=== PATIENT | female | born 1965 | race Caucasian/White ===

== ENCOUNTER 2022-02-24 07:10 | Day surgery (SDC) | payer MEDICARE, SELFPAY ==
[2022-02-24] VITALS (7 sets, daily range): BP systolic 126–150; BP diastolic 69–77; PULSE 65–93; RESP 16–20; TEMP 36.7–36.8; O2SAT 92–100; BMI 44.2
--- NOTE | 2022-02-24 08:48 | PM.ORPRC ---
Procedure Note Date of procedure: 02/24/22 Procedure: Preop diagnosis: Right upper extremity carpal tunnel syndrome Postop diagnosis: Right upper extremity carpal tunnel syndrome Procedure: Right upper extremity carpal tunnel release Anesthesia: Local Surgeon: Marques Salinas MD administrative personal assistant: TASIA Byrd EBL: 5 mL Complications: None Specimens: None Drains: None Indications: The patient has a history of right upper extremity carpal tunnel syndrome symptoms. Despite appropriate nonoperative management consisting of nighttime bracing and occupational therapy they continue to have symptoms. Operative intervention was recommended. The risks, benefits alternatives and expected outcomes were discussed in detail. These included but were not limited to: Infection, bleeding, injury to blood vessel or nerve, venous thromboembolism. All questions were answered to their satisfaction. The patient was placed supine on the operating room table. Local anesthesia was established with 0.5% Marcaine without epinephrine and 2% lidocaine without epinephrine. The hand was prepped and draped in usual sterile fashion. The limb was elevated the forearm pneumatic tourniquet was inflated to 250 mm of mercury. A longitudinal incision was made centered over the radial border of the ring finger at the base of the palm. Subcutaneous dissection was sharply taken through the palmar fascia and the palmaris brevis to the transverse carpal ligament. The ligament was divided in line with the incision. Proximal and distal dissection was carried with tenotomy and Metzenbaum scissors for a wide decompression of the carpal tunnel. The tourniquet was released , bleeding was controlled with direct pressure. The wound was closed with a 3-0 nylon. A bulky dry dressing was applied, sponge and needle counts were correct x 2. The patient tolerated the procedure well, there were no apparent complications. They were sent to same day surgery in satisfactory condition. Plan: Use of the hand as tolerates. Discontinue the intraoperative dressing on postoperative day 3 and may get the wound wet as tolerates. Follow up in the office in 2 weeks for a wound check and suture removal. Since
[2022-02-24] MEDS: lidocaine HCL 2 % MULTIDOSE 20 ML VIAL 5 ML INJECTION (09:05)
[2022-02-24] MEDS: BUPIVACAINE 0.5% 30 ML 7 ML INJECTION (09:05)
== END 2022-02-24 09:45 | disposition home or self-care (01) ==
PROVIDERS: PCP Family Medicine; Visit Provider Orthopaedic Surgery
PROC: (CPT 64721; principal; 2022-02-24 08:15)
DX: G56.01 Carpal tunnel syndrome, right upper limb (principal)
CPT/HCPCS: 64721; J3490

== ENCOUNTER 2023-10-29 19:06 | Emergency (ER) | payer OTHER, SELFPAY ==
[2023-10-29] VITALS (15 sets, daily range): BP systolic 121–158; BP diastolic 47–75; PULSE 61–83; RESP 18; TEMP 36.6; O2SAT 92–100; BMI 47.2
--- NOTE | 2023-10-29 19:09 | CRLHL7_ITS ---
For Patients: As a result of the Cures Act, medical imaging exams and procedure reports are released immediately into your electronic medical record. You may view this report before your referring provider. If you have questions, please contact your health care provider. Indication: fall and pain Technique: Three views of the left shoulder and two views of the left humerus Comparison: None Findings/impression : There is an acute fracture of the surgical neck of the left humerus in near anatomic alignment with extension of the fracture to the lesser and greater tuberosities. 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 No suspicious osseous lesions. Dictated by Nikko Quarles MD @ 10/29/2023 7:50:06 PM (Electronically Signed)
--- NOTE | 2023-10-29 19:09 | CRLHL7_ITS ---
For Patients: As a result of the Cures Act, medical imaging exams and procedure reports are released immediately into your electronic medical record. You may view this report before your referring provider. If you have questions, please contact your health care provider. Indication: fall and pain, Technique: Three views of the left shoulder and two views of the left humerus Comparison: None Findings/impression : There is an acute fracture of the surgical neck of the left humerus in near anatomic alignment with extension of the fracture to the lesser and greater tuberosities. 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 No suspicious osseous lesions. Dictated by Nikko Quarles MD @ 10/29/2023 7:49:41 PM (Electronically Signed)
[2023-10-29] MEDS: fentaNYL 100 MCG/2 ML inj 50 MCG IVP (19:22)
[2023-10-29] MEDS: HYDROmorphone 0.5 mg/0.5 ml inj IVP (19:23)
--- NOTE | 2023-10-29 19:34 | ED.FALL ---
HPI - Fall General Date Seen: 10/29/23 Chief Complaint: Shoulder Injury/Pain Stated Complaint: shoulder injury, fall Time Seen by Provider: 10/29/23 19:09 Source: patient, EMS, RN notes reviewed and old records reviewed Mode of arrival: EMS Limitations: no limitations History of Present Illness HPI Narrative: Patient is a very nice 57-year-old female who presents here with a left shoulder injury, she fell well walking out to the garage. She fell in her left shoulder, and notes that she can not really move her left shoulder at all. She denies any numbness tingling weakness, denies any neck or head injury associated with this. She is able to stand his back she stood and walked to the gurney that brought her here. They were unable to get an IV did not give her any pain medications. She does have a history of multiple sclerosis. Has some left-sided weakness. Primarily of her leg, but a little bit of her arm. Allergies to NSAIDs are noted. Denies loss of consciousness, any other discomfort, she did not have a syncopal episode, complaint: fall Onset (ago): minute(s) Fall from: standing and from height (distance) (3 ft walk) Fall witnessed: no Place fall occurred: home Loss of consciousness: No Prolonged down time: no Symptoms prior to fall: none Context: tripped/slipped Location of injury - extremities: Left: shoulder Severity: moderate Quality: sharp Associated symptoms (after fall): denies Related Data Home Medications ?Medication ?Instructions ?Recorded ?Confirmed cholecalciferol (vitamin D3) 50 50 mcg PO QDAY 09/12/22 10/29/23 mcg (2,000 unit) capsule cyanocobalamin (vitamin B-12) 1,000 mcg PO QDAY 09/12/22 10/29/23 1,000 mcg tablet gabapentin 300 mg capsule 900 mg PO TID 09/12/22 10/29/23 multivitamin (Multiple Vitamins 1 tab PO QAM 09/12/22 10/29/23 tablet) Previous Rx's ?Medication ?Instructions ?Recorded acetaminophen 650 mg 650 mg PO .q 6 90 days #360 tabs 05/22/23 tablet,extended release oxybutynin chloride 5 mg tablet 2.5 mg (1/2 x 5 mg) PO BID 90 days 06/27/23 #90 tabs furosemide 20 mg tablet 10 mg (1/2 x 20 mg) PO QAM 90 days 08/29/23 #45 tabs lisinopril 20 mg tablet 20 mg PO BID 90 days #180 tabs 08/29/23 tizanidine 2 mg tablet 2 mg PO Q8H PRN for muscle spasm 09/07/23 #90 tabs Allergies Allergy/AdvReac Type Severity Reaction Status Date / Time hydrocortisone Allergy Unknown Unknown Verified 10/29/23 19:20 neomycin Allergy Unknown Verified 10/29/23 19:20 polymyxin B Allergy Unknown Verified 10/29/23 19:20 bacitracin Allergy Verified 10/29/23 19:20 Sulfa (Sulfonamide AdvReac Unknown Verified 10/29/23 19:20 Antibiotics) NSAIDS (Non-Steroidal AdvReac Verified 10/29/23 19:20 Anti-Inflamma BACLOFEN AdvReac muscle Uncoded 04/27/23 07:46 twitching Review of Systems Status of ROS: Reports: 10 or more systems reviewed and unremarkable except as noted in History and below PFSH [facility] Medical History Morbid obesity (10/06/09) ?E66.01 - Morbid (severe) obesity due to excess calories (ICD-10) Abnormal vaginal Pap smear ?R87.629 - Unspecified abnormal cytological findings in specimens from vagina (ICD-10) Arthritis ?M19.90 - Unspecified osteoarthritis, unspecified site (ICD-10) Spinal stenosis ?M48.00 - Spinal stenosis, site unspecified (ICD-10) Hypertension ?I10 - Essential (primary) hypertension (ICD-10) Surgical History History of loop electrical excision procedure (LEEP) ?Z98.890 - Other specified postprocedural states (ICD-10) Status post total replacement of right hip ?Z96.641 - Presence of right artificial hip joint (ICD-10) Status post total replacement of left hip ?Z96.642 - Presence of left artificial hip joint (ICD-10) Status post right foot surgery ?Z98.890 - Other specified postprocedural states (ICD-10) H/O section ?Z98.891 - History of uterine scar from previous surgery (ICD-10) History of left hip replacement ?Z96.642 - Presence of left artificial hip joint (ICD-10) History of right hip replacement ?Z96.641 - Presence of right artificial hip joint (ICD-10) H/O gastric sleeve ?Z90.3 - Acquired absence of stomach [part of] (ICD-10) Hx of cholecystectomy ?Z90.49 - Acquired absence of other specified parts of digestive tract (ICD-10) Family History Mother Lung cancer, Onset Age: 62 Father Coronary artery disease, Onset Age: 52 High blood pressure High cholesterol Obese Unknown Multiple sclerosis Paternal Grandmother Heart disease High cholesterol High blood pressure Brother High blood pressure High cholesterol Paternal Grandfather Obese High blood pressure Stroke Maternal Grandfather Heart disease Cancer Social History Smoking Status: Never smoker Do you use any of these nicotine containing products: None Second hand tobacco smoke exposure: No How often do you have a drink containing alcohol: never AUDIT-C Alcohol total score: 0 Non-prescribed substance use: denies use service: No Exam Narrative: Exam Narrative: Patient is initially seen in the ambulance [facility], I walked her back to [facility]. We put her there because the possibility of conscious sedation, and need to do a procedure. She is alert oriented x3, she was able to get up from the ambulance gurney and pivot stand, and sat down on the bed. Complaining of only pain in her left arm, which she keeps abducted, and internally rotated across her arm. She will localizes her pain over her humeral head. Not over her AC joint. GCS is 15/15, speaks normally, TMs are normal, her neck is supple full range of motion in flexion extension lateral flexion rotation are noted, no evidence of any injury over head, chest is good air entry bilaterally no wheezing crackles noted heart sounds are normal, her abdomen is soft and obese no guarding no organomegaly, moves lower extremities independently and well, can bear weight, and raise both her legs normally, pelvis is normal stable to rocking no tenderness to palpation is noted over her lumbar or thoracic spine. Her left arm, shows no tenderness over her elbow to her fingers. 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 Her pulses are normal in upper extremities, I do not see an obvious deformity of her left shoulder. Sensation is normal in her left arm, specifically over the regimen show badge area, and along her left arm, Const: Vital Signs, click to edit/add: Vital Signs - 24 hr 10/29/23 19:15 10/29/23 19:46 10/29/23 19:46 Temperature 98 F Pulse Rate [Pulse Oximeter] 78 Respiratory Rate 18 Blood Pressure [Ri ght Upper Arm] 158/75 H Pulse Oximetry 92 94 94 Oxygen Delivery Me thod Room Air Nasal Cannula Oxygen Flow Rate 2 Documenting provider has reviewed patient's vital signs: yes Course Course ED Course: X-rays show that her humeral head is fractured, it is sitting and nondisplaced, I did send the pictures to Orthopedics, suggested that we try non operative treatment, if this does not work and a reverse shoulder, this is actually her orthopedist the did her hips. We will give her pain medication, and allow her to go home. Vital Signs Vital signs: Initial Vital Signs Temperature 98 F 10/29/23 19:15 Temperature Source Temporal Artery Scan 10/29/23 19:15 Pulse Rate 78 10/29/23 19:15 Pulse Rhythm Regular 10/29/23 19:15 Pulse Strength 3+ Normal 10/29/23 19:15 Respiratory Rate 18 10/29/23 19:15 Blood Pressure 158/75 H 10/29/23 19:15 Blood Pressure Mean 102 10/29/23 19:15 Blood Pressure Position Semi-Fowlers 10/29/23 19:15 Pulse Oximetry 92 10/29/23 19:15 Oxygen Delivery Method Room Air 10/29/23 19:15 Vital Signs Temperature 98 F 10/29/23 19:15 Pulse Rate 78 10/29/23 19:15 Respiratory Rate 18 10/29/23 19:15 Blood Pressure 158/75 H 10/29/23 19:15 Pulse Oximetry 92 10/29/23 19:15 Oxygen Delivery Method Room Air 10/29/23 19:15 Temperature 98 F 10/29/23 19:15 Pulse Rate 78 10/29/23 19:15 Respiratory Rate 18 10/29/23 19:15 Blood Pressure 158/75 H 10/29/23 19:15 Pulse Oximetry 94 07/21/24 19:46 Oxygen Delivery Method Nasal Cannula 10/29/23 19:46 Oxygen Flow Rate 2 10/29/23 19:46 Medications Administered Medications: Discontinued Medications Generic Name Dose Route Start Last Admin Trade Name Jonah PRZuly Reason Stop Dose Admin Fentanyl 50 mcg 10/29/23 19:10 10/29/23 19:22 Fentanyl 100 Mcg/2 Ml Inj IVP 10/29/23 19:11 50 mcg ONCE ONE Administration Hydromorphone HCl 0.5 mg 10/29/23 19:10 10/29/23 19:23 Hydromorphone 0.5 Mg/0.5 Ml Inj IVP 10/29/23 19:11 0.5 mg ONCE ONE Administration MDM - Fall Differential Diagnosis Differential diagnosis: Likely dislocation of shoulder region Medical Records Attestation: I reviewed the patient's medical records. Imaging Data Shoulder x-ray: Attestation: I have reviewed the pertinent imaging results. My impression: Fracture of the humeral head. No dislocation Discharge Plan Discharge Clinical Impression: Fracture of head of humerus Patient Disposition: Home w/ Parent or Adult Condition: Stable Instructions: Arm Fracture in Adults (ED), How to Use a Sling (ED) Additional Instructions: Discussed with the patient, need follow-up with orthopedics. I discussed with her that I texted the pictures to her orthopedic doctor who said that letting this heal, and then seeing how of good of result she has in possibly getting a reverse shoulder would be a good way to go. We will give you pain medication, out of instymeds, this can cause constipation, she should take a stool softener along with MiraLax. Leave your arm in the sling all the time. Follow-up with orthopedic, prescription via instymeds for percocet, 20 tabs Prescriptions: No Action multivitamin [Multiple Vitamins] Tablet 1 tab PO QAM cholecalciferol (vitamin D3) 50 mcg (2,000 unit) capsule 50 mcg PO QDAY cyanocobalamin (vitamin B-12) 1,000 mcg tablet 1,000 mcg PO QDAY gabapentin 300 mg capsule 900 mg PO TID acetaminophen 650 mg tablet extended release 650 mg PO .q 6 90 Days Qty: 360 3RF oxybutynin chloride 5 mg tablet 2.5 mg PO BID 90 Days Qty: 90 3RF furosemide 20 mg tablet 10 mg PO QAM 90 Days Qty: 45 0RF lisinopril 20 mg tablet 20 mg PO BID 90 Days Qty: 180 0RF tizanidine 2 mg tablet 2 mg PO Q8H PRN (Reason: for muscle spasm) Qty: 90 11RF Follow Up/Referrals: Marques Salinas MD [Staff Physician] - Vandana Anderson APRN, CNP [Primary Care Provider] - Stand Alone Forms: [employer] Android POS Info Instructions
== END 2023-10-29 21:17 | disposition home or self-care (01) ==
PROVIDERS: Emergency Provider Family Medicine; PCP Nurse Practitioner Family
DX: S42.202A Unspecified fracture of upper end of left humerus, initial encounter for closed fracture (principal); W19.XXXA Unspecified fall, initial encounter
CPT/HCPCS: 73030; 73060; 94761; 96374; 96375; 99283; 99284; J1170; J3010

== ENCOUNTER 2023-12-07 15:15 | Outpatient (REF) | payer OTHER, SELFPAY ==
[2023-12-07 18:28] LABS: Albumin* 4.4 g/dL (3.3-5.0)
[2023-12-07 18:31] LABS: Aspartate Amino Transferase* 24 U/L (12-35); Bilirubin Direct* 0.3 mg/dL (0.0-0.5); Bilirubin Total* 1.1 mg/dL (0.1-1.5); Total Protein* 6.5 g/dL (6.0-8.3)
[2023-12-07 18:32] LABS: Alanine Aminotransferase* 15 U/L (4-35); Alkaline Phosphatase* 120 U/L (40-150)
[2023-12-07 18:40] LABS: Basophils Percent Auto 0.5 % (0.0-3.0); Eosinophils Percent Auto 2.6 % (0.0-7.0); Hematocrit 46.1 % (33.0-51.0); Hemoglobin* 14.9 gm/dL (12.0-16.0); Immature Granulocytes Pct Auto 0.2 %; Lymphocytes Percent Auto 18.4 % (20-44); Mean Corpuscular HGB Conc 32 gm/dL (32-36); Mean Corpuscular Hemoglobin 30 pg (26-34); Mean Corpuscular Volume 93 fL (80-100); Monocytes Percent Auto 8.9 % (0.0-11.0); Neutrophils Percent Auto 69.4 % (42.0-72.0); Platelet Count* 260 K/uL (140-440); RDW Coefficient of Variation % 12.8 % (11.5-15.5); Red Blood Count 4.94 m/uL (4.00-5.20); White Blood Count* 4.18 K/uL (4.50-11.00)
[2023-12-07 19:04] LABS: Slide Review Reflex No
[2023-12-07 19:12] LABS: HIV 1/2/P24 Combo Screen* Negative (Negative)
[2023-12-10 03:40] LABS: Immunoglobulin A 93 mg/dL (68-408); Immunoglobulin G 381 mg/dL (768-1632); Immunoglobulin M 54 mg/dL (35-263)
== END 2023-12-07 15:16 | disposition home or self-care (01) ==
LOC: NPINS 15:15
PROVIDERS: PCP Nurse Practitioner Family; Visit Provider Psychiatry & Neurology Neurology
DX: G35 Multiple sclerosis (principal); E78.5 Hyperlipidemia, unspecified; E66.01 Morbid (severe) obesity due to excess calories; I10 Essential (primary) hypertension; E04.9 Nontoxic goiter, unspecified; R73.03 Prediabetes; R35.0 Frequency of micturition; N87.9 Dysplasia of cervix uteri, unspecified; Z79.2 Long term (current) use of antibiotics; Z83.49 Family history of other endocrine, nutritional and metabolic diseases; Z13.0 Encounter for screening for diseases of the blood and blood-forming organs and certain disorders involving the immune mechanism; Z11.4 Encounter for screening for human immunodeficiency virus [HIV]; Z11.1 Encounter for screening for respiratory tuberculosis; Z51.81 Encounter for therapeutic drug level monitoring; Z11.3 Encounter for screening for infections with a predominantly sexual mode of transmission
CPT/HCPCS: 80053; 80061; 80076; 82607; 82728; 82784; 83540; 83550; 84443; 84466; 85025; 86355; 86480; 86703

== ENCOUNTER 2024-01-08 13:42 | Outpatient (REF) | payer OTHER, SELFPAY ==
[2024-01-08 14:24] LABS: Albumin* 4.3 g/dL (3.3-5.0)
[2024-01-08 14:25] LABS: Basophils Percent Auto 1.2 % (0.0-3.0); Eosinophils Percent Auto 1.4 % (0.0-7.0); Hematocrit 46.7 % (33.0-51.0); Immature Granulocytes Pct Auto 0.2 %; Mean Corpuscular HGB Conc 32 gm/dL (32-36); Mean Corpuscular Hemoglobin 30 pg (26-34); Mean Corpuscular Volume 93 fL (80-100); Monocytes Percent Auto 10.4 % (0.0-11.0); Neutrophils Percent Auto 67.8 % (42.0-72.0); Platelet Count* 212 K/uL (140-440); RDW Coefficient of Variation % 12.6 % (11.5-15.5); Red Blood Count 5.02 m/uL (4.00-5.20); White Blood Count* 4.31 K/uL (4.50-11.00)
[2024-01-08 14:27] LABS: Alanine Aminotransferase* 26 U/L (4-35); Alkaline Phosphatase* 113 U/L (40-150); Aspartate Amino Transferase* 29 U/L (12-35); Bilirubin Direct* 0.4 mg/dL (0.0-0.5); Total Protein* 6.5 g/dL (6.0-8.3)
[2024-01-08 14:39] LABS: Slide Review Reflex No
== END 2024-01-08 13:43 | disposition home or self-care (01) ==
LOC: NPINS 13:42
PROVIDERS: PCP Nurse Practitioner Family; Visit Provider Psychiatry & Neurology Neurology
DX: G35 Multiple sclerosis (principal); Z79.899 Other long term (current) drug therapy
CPT/HCPCS: 80076; 85025

== ENCOUNTER 2024-02-05 13:20 | Outpatient (RCR) | payer OTHER, SELFPAY ==
[2024-02-05 13:47] LABS: Hematocrit* 46.1 % (33.0-51.0); Hemoglobin* 14.8 gm/dL (12.0-16.0); Immature Granulocytes Abs Auto 0.00 K/uL (0.00-0.30); Immature Granulocytes Pct Auto 0.0 %; Mean Corpuscular HGB Conc 32 gm/dL (32-36); Mean Corpuscular Hemoglobin 30 pg (26-34); Mean Corpuscular Volume 92 fL (80-100); RDW Coefficient of Variation % 12.6 % (11.5-15.5); Red Blood Count* 4.99 m/uL (4.00-5.20); White Blood Count* 4.11 K/uL (4.50-11.00)
[2024-02-05 13:51] LABS: Lymphocytes Absolute Auto 0.90 K/uL (0.90-2.90); Slide Review Reflex No
[2024-02-05 15:30] LABS: Albumin* 4.0 g/dL (3.3-5.0)
[2024-02-05 15:32] LABS: Bilirubin Direct* 0.2 mg/dL (0.0-0.5); Bilirubin Total* 0.8 mg/dL (0.1-1.5)
[2024-02-05 15:33] LABS: Alanine Aminotransferase* 26 U/L (4-35); Alkaline Phosphatase* 103 U/L (40-150); Aspartate Amino Transferase* 29 U/L (12-35); Total Protein* 6.2 g/dL (6.0-8.3)
[2024-03-14 22:06] LABS: Hematocrit* 45.8 % (33.0-51.0); Hemoglobin* 14.7 gm/dL (12.0-16.0); Immature Granulocytes Abs Auto 0.01 K/uL (0.00-0.30); Immature Granulocytes Pct Auto 0.2 %; Mean Corpuscular HGB Conc 32 gm/dL (32-36); Mean Corpuscular Hemoglobin 30 pg (26-34); Mean Corpuscular Volume 92 fL (80-100); RDW Coefficient of Variation % 13.1 % (11.5-15.5); Red Blood Count* 4.96 m/uL (4.00-5.20); White Blood Count* 5.91 K/uL (4.50-11.00)
[2024-03-14 22:09] LABS: Lymphocytes Absolute Auto 1.00 K/uL (0.90-2.90); Slide Review Reflex No
[2024-03-14 22:10] LABS: Albumin* 4.1 g/dL (3.3-5.0)
[2024-03-14 22:13] LABS: Alanine Aminotransferase* 21 U/L (4-35); Alkaline Phosphatase* 106 U/L (40-150); Aspartate Amino Transferase* 25 U/L (12-35); Bilirubin Direct* 0.2 mg/dL (0.0-0.5); Bilirubin Total* 0.8 mg/dL (0.1-1.5); Total Protein* 6.2 g/dL (6.0-8.3)
== END 2025-01-08 08:33 | disposition home or self-care (01) ==
LOC: NPINS 13:20
PROVIDERS: PCP Nurse Practitioner Family; Visit Provider Psychiatry & Neurology Neurology
DX: Z51.81 Encounter for therapeutic drug level monitoring (principal); Z79.899 Other long term (current) drug therapy; G35 Multiple sclerosis
CPT/HCPCS: 80076; 85025

== ENCOUNTER 2024-04-11 14:33 | Outpatient (REF) | payer OTHER, SELFPAY ==
[2024-04-11 16:49] LABS: Basophils Absolute Auto 0.01 K/uL (0.00-0.30); Basophils Percent Auto 0.2 % (0.0-3.0); Eosinophils Absolute Auto 0.09 K/uL (0.00-0.50); Eosinophils Percent Auto 1.9 % (0.0-7.0); Lymphocytes Absolute Auto 1.01 K/uL (0.90-2.90); Lymphocytes Percent Auto 21.9 % (20-44); Mean Corpuscular HGB Conc 32 gm/dL (32-36); Mean Corpuscular Hemoglobin 30 pg (26-34); Mean Corpuscular Volume 93 fL (80-100); Monocytes Percent Auto 12.6 % (0.0-11.0); Neutrophils Absolute Auto 2.93 K/uL (1.7-7.0); Neutrophils Percent Auto 63.4 % (42.0-72.0); Platelet Count* 215 K/uL (140-440); Red Blood Count 5.07 m/uL (4.00-5.20); White Blood Count* 4.62 K/uL (4.50-11.00)
[2024-04-11 16:53] LABS: Slide Review Reflex No
[2024-04-11 17:28] LABS: Albumin* 4.2 g/dL (3.3-5.0)
[2024-04-11 17:31] LABS: Alanine Aminotransferase* 31 U/L (4-35); Alkaline Phosphatase* 94 U/L (40-150); Aspartate Amino Transferase* 30 U/L (12-35); Bilirubin Direct* 0.4 mg/dL (0.0-0.5); Bilirubin Total* 1.3 mg/dL (0.1-1.5); Total Protein* 6.3 g/dL (6.0-8.3)
== END 2024-04-11 14:34 | disposition home or self-care (01) ==
LOC: NPINS 14:33
PROVIDERS: PCP Nurse Practitioner Family; Visit Provider Psychiatry & Neurology Neurology
DX: G35 Multiple sclerosis (principal); Z51.81 Encounter for therapeutic drug level monitoring
CPT/HCPCS: 80076; 85025

== ENCOUNTER 2024-04-11 16:10 | Outpatient (REF) | payer OTHER, SELFPAY ==
[2024-04-13 11:55] LABS: Immunoglobulin A 96 mg/dL (68-408); Immunoglobulin G 417 mg/dL (768-1632); Immunoglobulin M 55 mg/dL (35-263)
== END 2024-04-11 16:11 | disposition home or self-care (01) ==
LOC: NPINS 16:10
PROVIDERS: PCP Nurse Practitioner Family; Visit Provider Psychiatry & Neurology Neurology
DX: G35 Multiple sclerosis (principal); D84.9 Immunodeficiency, unspecified; Z79.899 Other long term (current) drug therapy; Z51.81 Encounter for therapeutic drug level monitoring
CPT/HCPCS: 82784; 82787; 86335; 86357; 86359; 86360

== ENCOUNTER 2024-05-23 11:30 | Outpatient (CLI) | payer OTHER, SELFPAY ==
[2024-05-23 14:56] LABS: Basophils Percent Auto 0.7 % (0.0-3.0); Eosinophils Percent Auto 3.1 % (0.0-7.0); Hemoglobin* 15.1 gm/dL (12.0-16.0); Lymphocytes Percent Auto 26.3 % (20-44); Mean Corpuscular HGB Conc 32 gm/dL (32-36); Mean Corpuscular Hemoglobin 29 pg (26-34); Mean Corpuscular Volume 92 fL (80-100); Monocytes Percent Auto 13.7 % (0.0-11.0); Neutrophils Percent Auto 56.2 % (42.0-72.0); Platelet Count* 193 K/uL (140-440); RDW Coefficient of Variation % 12.9 % (11.5-15.5); Red Blood Count 5.13 m/uL (4.00-5.20); White Blood Count* 4.22 K/uL (4.50-11.00)
[2024-05-23 15:01] LABS: Slide Review Reflex No
[2024-05-23 16:11] LABS: Albumin* 4.4 g/dL (3.3-5.0)
[2024-05-23 16:14] LABS: Alanine Aminotransferase* 33 U/L (4-35); Alkaline Phosphatase* 96 U/L (40-150); Aspartate Amino Transferase* 32 U/L (12-35); Bilirubin Direct* 0.4 mg/dL (0.0-0.5); Bilirubin Total* 1.1 mg/dL (0.1-1.5); Total Protein* 6.8 g/dL (6.0-8.3)
== END 2024-05-23 11:31 | disposition home or self-care (01) ==
LOC: NPINS 05-30 14:50
PROVIDERS: PCP Nurse Practitioner Family; Visit Provider Psychiatry & Neurology Neurology
DX: G35 Multiple sclerosis (principal); Z51.81 Encounter for therapeutic drug level monitoring
CPT/HCPCS: 80076; 85025; 86360

== ENCOUNTER 2024-11-21 10:53 | Outpatient (CLI) | payer OTHER, SELFPAY ==
[2024-11-21 14:08] LABS: Hematocrit* 45.1 % (33.0-51.0); Hemoglobin* 14.5 gm/dL (12.0-16.0); Immature Granulocytes Abs Auto 0.00 K/uL (0.00-0.30); Immature Granulocytes Pct Auto 0.0 %; Mean Corpuscular HGB Conc 32 gm/dL (32-36); Mean Corpuscular Hemoglobin 30 pg (26-34); Mean Corpuscular Volume 92 fL (80-100); RDW Coefficient of Variation % 13.0 % (11.5-15.5); Red Blood Count* 4.90 m/uL (4.00-5.20); White Blood Count* 4.74 K/uL (4.50-11.00)
[2024-11-21 14:11] LABS: Lymphocytes Absolute Auto 0.80 K/uL (0.90-2.90); Slide Review Reflex No
[2024-11-21 14:36] LABS: Albumin* 4.2 g/dL (3.3-5.0); Chloride* 104 mmol/L (96-114); Potassium* 5.5 mmol/L (3.6-5.1); Sodium* 139 mmol/L (135-149)
[2024-11-21 14:39] LABS: Alanine Aminotransferase* 20 U/L (4-35); Alkaline Phosphatase* 91 U/L (40-150); Anion Gap 4 mEq/L (7-15); Aspartate Amino Transferase* 27 U/L (12-35); Bilirubin Total* 1.2 mg/dL (0.1-1.5); Blood Urea Nitrogen* 16 mg/dL (7-30); Carbon Dioxide* 31 mmol/L (20-32); Creatinine* 0.7 mg/dL (0.5-1.5); Estimated Glomerular Filt Rate 99 ml/min; Total Protein* 6.4 g/dL (6.0-8.3)
[2024-11-21 14:40] LABS: Calcium* 11.0 mg/dL (8.4-10.6); Glucose* 94 mg/dL (60-115)
== END 2024-11-21 10:54 | disposition home or self-care (01) ==
LOC: NPINS 10:59
PROVIDERS: PCP Nurse Practitioner Family; Visit Provider Psychiatry & Neurology Neurology
DX: Z79.899 Other long term (current) drug therapy (principal)
CPT/HCPCS: 80053; 85025; 86334

== ENCOUNTER 2024-12-13 10:22 | Outpatient (CLI) | payer OTHER, SELFPAY | END 2024-12-13 10:23 | disposition home or self-care (01) | PROVIDERS: PCP Nurse Practitioner Family; Visit Provider Nurse Practitioner Family | DX: E78.5 Hyperlipidemia, unspecified (principal); E53.8 Deficiency of other specified B group vitamins; I10 Essential (primary) hypertension; R32 Unspecified urinary incontinence; E04.9 Nontoxic goiter, unspecified; Z83.49 Family history of other endocrine, nutritional and metabolic diseases; Z13.0 Encounter for screening for diseases of the blood and blood-forming organs and certain disorders involving the immune mechanism | CPT/HCPCS: 80053; 80061; 82607; 82728; 83540; 84443; 84466; 85025 ==